=== PATIENT | male | born 1995 | race Caucasian/White ===

== ENCOUNTER 2018-03-21 17:51 | Emergency (ER) | payer OTHER ==
[~2018-03-21] VITALS: Ht 177.8 cm; Wt 72.6 kg
[2018-03-21 18:08] VITALS: Ht 177.8 cm; Wt 72.6 kg
[2018-03-21 21:04] VITALS: BP 131/84
== END 2018-03-21 21:04 | disposition home or self-care (01) ==
LOC: ED 17:51
DX: R55 Syncope and collapse (principal); R06.02 Shortness of breath